=== PATIENT | male | born 1995 | race Caucasian/White ===

== ENCOUNTER 2017-05-29 11:15 | Emergency (ER) | payer SELFPAY ==
[~2017-05-29] VITALS: Ht 177.8 cm; Wt 77.3 kg
[2017-05-29 11:17] VITALS: TEMP 98.3
[2017-05-29 12:22] VITALS: BP 149/83; PULSE 86
== END 2017-05-29 12:23 | disposition home or self-care (01) ==
LOC: COL.ER 11:15
DX: S43.015A Anterior dislocation of left humerus, initial encounter (principal); X50.0XXA Overexertion from strenuous movement or load, initial encounter; Y92.39 Other specified sports and athletic area as the place of occurrence of the external cause
CPT/HCPCS: J2060; J3010

== ENCOUNTER → 2017-06-01 | Outpatient (CLI) | payer SELFPAY | LOC: COL.VAS 14:16 | DX: M25.512 Pain in left shoulder (principal); Q27.8 Other specified congenital malformations of peripheral vascular system ==

== ENCOUNTER → 2017-06-10 | Outpatient (CLI) | payer SELFPAY | LOC: COL.RAD 13:07 | DX: Q27.31 Arteriovenous malformation of vessel of upper limb (principal) | CPT/HCPCS: Q9967 ==

== ENCOUNTER → 2018-03-02 | Outpatient (CLI) | payer SELFPAY ==
[2018-03-02 15:43] LABS: BASO # 0.1 (0.0-0.2); BASO % 0.8 % (0.0-2.0); EOS % 0.3 % (0-4.0); GRAN % 21.2 % (42.2-75.2); HEMATOCRIT 43.8 % (42.0-52.0); HEMOGLOBIN 14.5 g/dl (13.5-18.0); LYMPH # 6.5 (1.2-3.4); LYMPH % 70.2 % (20.0-51.0); MEAN CELL VOLUME 82 fl (80.0-100.0); MEAN CORPUSCULAR HEMOGLOBIN 27 pg (27.0-31.0); MEAN CORPUSCULAR HGB CONC 33 g/dl (33.0-37.0); MEAN PLATELET VOLUME 9.3 fl (7.4-10.4); MONO # 0.7 (0.1-0.6); MONO % 7.4 % (1.7-9.3); PLATELET COUNT 146 K/mm3 (130-400); RED BLOOD COUNT 5.33 M/mm3 (4.20-5.60); REDCELL DISTRIBUTION WIDTH-CV 13.3 % (11.5-14.5)
[2018-03-02 15:57] LABS: CALCIUM 9.2 mg/dL (8.4-10.2); CREATININE, serum 1.04 mg/dL (0.66-1.25); POTASSIUM 4.1 mmol/L (3.4-5.0)
== END ==
LOC: COL.LAB 15:15
DX: Z01.812 Encounter for preprocedural laboratory examination (principal)

== ENCOUNTER → 2018-03-25 | Outpatient (CLI) | payer SELFPAY ==
[2018-03-25 12:15] LABS: BASO % 0.6 % (0.0-2.0); EOS # 0.2 (0.0-0.7); EOS % 2.4 % (0-4.0); GRAN # 3.4 (1.4-6.5); GRAN % 55.7 % (42.2-75.2); HEMATOCRIT 41.5 % (42.0-52.0); HEMOGLOBIN 13.5 g/dl (13.5-18.0); LYMPH % 31.9 % (20.0-51.0); MEAN CELL VOLUME 81 fl (80.0-100.0); MEAN CORPUSCULAR HEMOGLOBIN 27 pg (27.0-31.0); MEAN CORPUSCULAR HGB CONC 33 g/dl (33.0-37.0); MEAN PLATELET VOLUME 8.5 fl (7.4-10.4); MONO # 0.6 (0.1-0.6); MONO % 9.1 % (1.7-9.3); PLATELET COUNT 230 K/mm3 (130-400); REDCELL DISTRIBUTION WIDTH-CV 12.6 % (11.5-14.5)
[2018-03-25 12:24] LABS: CALCIUM 9.4 mg/dL (8.4-10.2); CREATININE, serum 0.92 mg/dL (0.66-1.25); POTASSIUM 4.6 mmol/L (3.4-5.0)
== END ==
LOC: COL.LAB 11:48
DX: I77.0 Arteriovenous fistula, acquired (principal)

== ENCOUNTER → 2019-02-08 | Outpatient (CLI) | payer SELFPAY | LOC: COL.VAS 15:00 | DX: Q27.30 Arteriovenous malformation, site unspecified (principal); Z95.820 Peripheral vascular angioplasty status with implants and grafts ==

== ENCOUNTER 2019-07-16 13:13 | Emergency (ER) | payer SELFPAY ==
[~2019-07-16] VITALS: Ht 175.3 cm; Wt 70.5 kg
[2019-07-16 13:17] VITALS: BP 136/77; TEMP 98
[2019-07-16] MEDS ORDERED: ASPIRIN 81M81 MG/TA2 PO (13:22)
[2019-07-16] MEDS ORDERED: TYLENOL 500MG500 MG PO (13:30)
[2019-07-16 15:05] VITALS: PULSE 89
== END 2019-07-16 15:05 | disposition home or self-care (01) ==
LOC: COL.ER 13:13
DX: M79.662 Pain in left lower leg (principal); Z79.82 Long term (current) use of aspirin; Z86.718 Personal history of other venous thrombosis and embolism